=== PATIENT | male | born 1965 | race African-American/Black ===

== ENCOUNTER 2024-01-21 23:55 | Emergency (ER) | payer OTHER, BC ==
[~2024-01-21] VITALS: Ht 180.3 cm; Wt 127.0 kg
[2024-01-22 00:50] VITALS: TEMP 98; O2SAT 96
[2024-01-22 04:26] VITALS: BP 114/96; PULSE 70; RESP 18
[2024-01-22] MEDS: KETOROLAC 30MG/ML VIAL IM NR (04:26)
== END 2024-01-22 04:26 | disposition home or self-care (01) ==
LOC: ER 23:55
DX: S93.491A Sprain of other ligament of right ankle, initial encounter (principal); J45.909 Unspecified asthma, uncomplicated; X58.XXXA Exposure to other specified factors, initial encounter; Y93.89 Activity, other specified; Y92.89 Other specified places as the place of occurrence of the external cause; Y99.8 Other external cause status
CPT/HCPCS: 99283; 73610; 96372; J1885